=== PATIENT | female | born 1965 | race Caucasian/White ===

== ENCOUNTER 2019-10-16 12:20 | Inpatient (IN) | payer MEDICAID ==
[~2019-10-16] VITALS: Ht 163.8 cm; Wt 74.7 kg
--- NOTE | 2019-10-16 12:48 | NUR ---
LAB IN TO DRAW. XR AT BS.
[2019-10-16 13:12] LABS: MEAN CORPUSCULAR HEMOGLOBIN 27.9 pg (27.0-34.8); MEAN CORPUSCULAR HGB CONC 32.7 g/dL (32.4-35.8); MEAN CORPUSCULAR VOLUME 85.3 fL (80-100); MEAN PLATELET VOLUME 8.5 fL (7.4-10.4); PLATELET (DIC) 388 x10^3/uL (130-400); PLATELET COUNT 391 x10^3/uL (130-400); RED BLOOD COUNT 3.66 x10^6/uL (3.82-5.3); RED CELL DISTRIBUTION WIDTH 15.7 % (9.6-15.2)
[2019-10-16 13:16] LABS: ALANINE AMINOTRANSFERASE 20 U/L (12-78); ALBUMIN 2.7 g/dL (3.4-5.0); ANION GAP 8 mmol/L (5-15); CALCIUM 8.7 mg/dL (8.5-10.1); CHLORIDE 105 mmol/L (98-107)
[2019-10-16] MEDS ORDERED: CEFTRIAXONE PMX 1GM/50ML 50 ML ONE (13:22)
[2019-10-16] MEDS ORDERED: DOXYCYCLINE 100MG TABLET ONE ×2 (13:22→19:30)
[2019-10-16] MEDS ORDERED: methylPREDNISolone SOD SUCC 40 MG/ML ONE (13:22)
[2019-10-16 13:23] LABS: ALKALINE PHOSPHATASE 79 U/L (45-117); BILIRUBIN,TOTAL 0.5 mg/dL (0.2-1.0); CREATININE 0.83 mg/dL (0.55-1.02); TOTAL PROTEIN 7.1 g/dL (6.4-8.2)
[2019-10-16] MEDS ORDERED: ENOXAPARIN 60 MG/0.6 ML ONE (13:23)
[2019-10-16 13:27] LABS: C-REACTIVE PROTEIN, QUANT > 19.00 mg/dL (0.02-0.49)
[2019-10-16] MEDS ORDERED: Enoxaparin 1 mg/kg protocol SQ ONE (13:30)
[2019-10-16] MEDS ORDERED: CEFTRIAXONE PMX 1GM/50ML 50 ML IV ONE (13:30)
[2019-10-16] MEDS ORDERED: ENOXAPARIN 60 MG/0.6 ML SQ ONE (13:30)
[2019-10-16] MEDS ORDERED: methylPREDNISolone SOD SUCC 125 MG/2 ML IVPush ONE (13:30)
[2019-10-16] MEDS ORDERED: DOXYCYCLINE 100MG TABLET PO ONE (13:30)
[2019-10-16] MEDS: ENOXAPARIN 60 MG/0.6 ML SQ SCH ×2 (13:32→20:30)
[2019-10-16 13:34] LABS: D-DIMER (DIC) 1.61 ug/mlFEU (0.00-0.52); PROTIME 10.1 Seconds (9.6-11.5); PTT 31 Seconds (25-31)
[2019-10-16 13:40] LABS: BASOPHILS % (AUTO) 0 % (0-1); EOSINOPHILS # (AUTO) 0.19 x10^3/uL (0-0.4); EOSINOPHILS % (AUTO) 1 % (1-7); LYMPHOCYTES # (AUTO) 1.24 x10^3/uL (1-3.4); LYMPHOCYTES % (AUTO) 5 % (22-44); MD SCAN; MONOCYTES # (AUTO) 0.98 x10^3/uL (0.2-0.8); MONOCYTES % (AUTO) 4 % (2-9); NEUTROPHILS # (AUTO) 21.44 x10^3/uL (1.8-6.8); NEUTROPHILS % (AUTO) 90 % (42-75)
--- NOTE | 2019-10-16 13:44 | NUR ---
TASK RN: PT STATES "I CAN'T BREATHE. IT STARTED 3 DAYS AGO AND IT'S GETTING WORSE. I'M USING MY NEBULIZERS AND INHALERS AND NOTHING WORKING". HX ASTHMA. 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 PT R/O COVID ADMIT. PIV INITIATED. PT MEDICATED PER JUN. MONITORS IN PLACE. NADN. AWARE OF POC FOR ADMIT. [facility] AT BEDSIDE. PRIMARY RN RAFAEL NOTIFIED.
[2019-10-16] MEDS ORDERED: FLUO60TA PO (13:50)
[2019-10-16] MEDS ORDERED: FLUT100B INH (13:50)
[2019-10-16] MEDS ORDERED: TIZA2CAP PO (13:50)
[2019-10-16] MEDS ORDERED: LISI2.5T PO (13:50)
[2019-10-16] MEDS ORDERED: GABA600T7 PO (13:50)
[2019-10-16] MEDS ORDERED: FLUO20CA23 PO (13:50)
[2019-10-16] MEDS ORDERED: ALBU18HF INH (13:50)
[2019-10-16] MEDS ORDERED: BUSP30TA PO (13:50)
[2019-10-16] MEDS ORDERED: RISP1TAB45 PO (13:50)
[2019-10-16] MEDS ORDERED: ONDANSETRON 2MG/ML, 2ML IVPush PRN (14:00)
[2019-10-16] MEDS ORDERED: ENOXAPARIN 30 MG/0.3 ML SQ SCH (14:00)
[2019-10-16] MEDS ORDERED: ONDANSETRON ODT 4 MG PO PRN (14:00)
[2019-10-16 14:29] LABS: FIBRINOGEN > 860 mg/dL (200-340)
[2019-10-16] MEDS: CEFTRIAXONE PMX 1GM/50ML 50 ML IV SCH (14:44)
[2019-10-16] MEDS ORDERED: NICOTINE 14MG/24 HR PATCH.TD24 ONE (14:46)
[2019-10-16] MEDS: SODIUM CHLORIDE 0.9% 1,000 ML IV SCH (14:57)
[2019-10-16] MEDS: NICOTINE 14MG/24 HR PATCH.TD24 TD SCH (14:57)
[2019-10-16] MEDS ORDERED: BENZONATATE 100 MG CAPSULE ONE (15:18)
[2019-10-16] MEDS ORDERED: GABAPENTIN 300 MG CAPSULE ONE ×2 (15:18→19:30)
--- NOTE | 2019-10-16 15:25 | NUR ---
MEDS GIVEN PER EMAR. PT ASSISTED TO REPOSITION IN BED. CALL LIGHT WITHIN REACH.
--- NOTE | 2019-10-16 15:29 | NUR ---
CALL TO DR GREER [facility]. PT STATES SHE TAKES PERCOCET 10/325 MG PO TID FOR CHRONIC NECK AND BACK PAIN. DR GREER GIVES VERBAL ORDER CONFIRMING MEDICATION AT HOME DOSAGE, ORDER INPUT BY THIS RN.
[2019-10-16] MEDS ORDERED: OXYcodone/APAP 10/325MG TABLET ONE ×2 (15:31→22:35)
[2019-10-16] MEDS: OXYcodone/APAP 10/325MG TABLET PO PRN ×2 (15:37→22:36)
--- NOTE | 2019-10-16 15:37 | NUR ---
PT MEDICATED WITH PERCOCET FOR 10/10 CHRONIC/NECK AND BACK PAIN. LIGHTS DIMMED.
[2019-10-16] MEDS ORDERED: BENZONATATE 100 MG CAPSULE PO ONE (16:00)
[2019-10-16] MEDS ORDERED: TEMPLATE NON-FORMULARY MED. (Gabapentin** 600 MG) PO SCH (16:00)
--- NOTE | 2019-10-16 16:16 | NUR ---
REPORT TO GISELA ACMPBELL, TRANSFER OF CARE AT THIS TIME.
--- NOTE | 2019-10-16 17:30 | NUR ---
PT AMBULATED TO BR WITHOUT DIFFICULTY.
--- NOTE | 2019-10-16 19:00 | NUR ---
REPORTED TO STEPHANE CAMPBELL.
[2019-10-16] MEDS ORDERED: RISPERIDONE 2 MG TABLET ONE (19:30)
[2019-10-16] MEDS ORDERED: ALBUTEROL SULFATE 2.5MG/0.5ML ONE (19:59)
--- NOTE | 2019-10-16 20:14 | NUR ---
patient sleeping on stretcher resting comfortably, vss, nad. rn will continue to monitor
[2019-10-16] MEDS ORDERED: ALBUTEROL HFA 90 MCG/SPRAY INH PRN (20:30)
[2019-10-16] MEDS: GABAPENTIN 300 MG CAPSULE PO SCH (20:52)
[2019-10-16] MEDS: BUSPIRONE 10 MG TABLET PO SCH (20:52)
[2019-10-16] MEDS: TIZANIDINE 2MG TABLET PO PRN (20:52)
[2019-10-16] MEDS: DOXYCYCLINE 100MG CAP PO SCH (20:54)
[2019-10-16] MEDS: RISPERIDONE 1 MG TABLET PO SCH (20:54)
[2019-10-16] MEDS: BUDESONIDE 0.5 MG/2 ML INHA HHN SCH (21:00)
[2019-10-16] MEDS ORDERED: OXYcodone/APAP 5/325MG TABLET ONE (22:28)
--- NOTE | 2019-10-16 23:00 | NUR ---
PATIENT DESATED ON 4L NC CANNULA FOR RN TO MID 80 AND PATIENT WAS COUGHING. RN INCREASED PATIENT 02 TO 6L AND PATIENT WAS ONLY REACHING 87-88%. SPOKE TO MD AND SUGGESTED OPTIFLOW FOR SUPPORT, MD AGREED. RT CALLED. PATIENT SLOWLY INCREASED HER SATS TO 92% ON 6L ON HER OWN WHEN RESTING IN BED
--- NOTE | 2019-10-16 23:02 | NUR ---
PATIENT TRANSFERED TO HOSPITAL BEDD
--- NOTE | 2019-10-16 23:34 | NUR ---
spoke with RT patient is not sating 95% on 6L, len hold off on optiflow at this time. patients RR improved, rn will continue to monitor
--- NOTE | 2019-10-17 01:09 | NUR ---
BREAK RN: PT SLEEPING IN NO ACUTE DISTRESS EVEN AND UNLABORED RESPIRATIONS. VSS.
[2019-10-17] MEDS: ENOXAPARIN 60 MG/0.6 ML SQ SCH ×3 (01:30→21:18)
[2019-10-17 05:20] VITALS: BP 95/61
[2019-10-17 05:27] LABS: ANION GAP 5 mmol/L (5-15); CALCIUM 8.7 mg/dL (8.5-10.1); CHLORIDE 109 mmol/L (98-107)
[2019-10-17 05:50] LABS: MEAN CORPUSCULAR HGB CONC 32.3 g/dL (32.4-35.8); MEAN CORPUSCULAR VOLUME 86.8 fL (80-100); MEAN PLATELET VOLUME 9.3 fL (7.4-10.4); PLATELET COUNT 371 x10^3/uL (130-400); RED BLOOD COUNT 3.47 x10^6/uL (3.82-5.3)
[2019-10-17] MEDS: SODIUM CHLORIDE 0.9% 1,000 ML IV SCH (06:10)
[2019-10-17] MEDS: OXYcodone/APAP 10/325MG TABLET PO PRN ×2 (06:10→21:19)
[2019-10-17 06:13] LABS: BASOPHILS % (AUTO) 0 % (0-1); EOSINOPHILS # (AUTO) 0.02 x10^3/uL (0-0.4); EOSINOPHILS % (AUTO) 0 % (1-7); LYMPHOCYTES # (AUTO) 0.73 x10^3/uL (1-3.4); LYMPHOCYTES % (AUTO) 3 % (22-44); MD SCAN; MONOCYTES # (AUTO) 0.94 x10^3/uL (0.2-0.8); MONOCYTES % (AUTO) 4 % (2-9); NEUTROPHILS # (AUTO) 21.05 x10^3/uL (1.8-6.8); NEUTROPHILS % (AUTO) 93 % (42-75)
[2019-10-17] MEDS ORDERED: LISINOPRIL 10 MG TABLET ONE (08:56)
[2019-10-17] MEDS ORDERED: FLUOXETINE HCL 20 MG CAPSULE ONE (08:57)
[2019-10-17] MEDS ORDERED: FLUOXETINE HCL 20 MG CAPSULE PO SCH (09:00)
[2019-10-17] MEDS: BUDESONIDE 0.5 MG/2 ML INHA HHN SCH ×2 (09:00→21:00)
[2019-10-17] MEDS ORDERED: methylPREDNISolone SOD SUCC 40 MG/ML IV SCH (09:00)
[2019-10-17] MEDS: FLUOXETINE 10 MG CAP PO SCH (09:14)
[2019-10-17] MEDS: BUSPIRONE 10 MG TABLET PO SCH ×2 (09:14→21:19)
[2019-10-17] MEDS: GABAPENTIN 300 MG CAPSULE PO SCH ×3 (09:15→21:20)
[2019-10-17] MEDS: RISPERIDONE 1 MG TABLET PO SCH ×2 (09:15→21:20)
[2019-10-17] MEDS: LISINOPRIL 20 MG TABLET PO SCH (09:15)
[2019-10-17] MEDS: DOXYCYCLINE 100MG CAP PO SCH ×2 (09:15→21:19)
[2019-10-17] MEDS: CHOLECALCIFEROL 1,000 UNIT TABLET PO SCH (13:12)
[2019-10-17] MEDS: ASCORBIC ACID 500 MG TABLET PO SCH ×3 (13:12→21:20)
[2019-10-17] MEDS: CEFTRIAXONE PMX 1GM/50ML 50 ML IV SCH (13:13)
[2019-10-17] MEDS: NICOTINE 14MG/24 HR PATCH.TD24 TD SCH (13:13)
[2019-10-17 14:00] VITALS: BP 121/75
[2019-10-17] MEDS: methylPREDNISolone SOD SUCC 125 MG/2 ML IV SCH ×2 (14:37→21:21)
[2019-10-17] MEDS: ACETAMINOPHEN 325 MG TABLET PO PRN (14:37)
[2019-10-17] MEDS ORDERED: FUROSEMIDE 40 MG/4 ML IV ONE (15:30)
[2019-10-17] MEDS ORDERED: REMDESIVIR 200 MG in SODIUM CHLORIDE 0.9% 250 ML IVPB ONE (15:30)
[2019-10-17 20:42] VITALS: BP 108/70
[2019-10-17] MEDS: MELATONIN 5 MG TABLET PO SCH (21:20)
[2019-10-17] MEDS: CALCIUM CARBONATE 500 MG TAB.CHEW PO PRN (21:20)
[2019-10-17] MEDS ORDERED: [UNRECOGNIZED DRUG - REMARK] MC SCH (23:00)
[2019-10-18 01:36] VITALS: BP 113/76
[2019-10-18] MEDS: methylPREDNISolone SOD SUCC 125 MG/2 ML IV SCH ×4 (03:31→21:13)
[2019-10-18 05:18] LABS: MEAN CORPUSCULAR HEMOGLOBIN 27.7 pg (27.0-34.8); MEAN CORPUSCULAR HGB CONC 31.8 g/dL (32.4-35.8); MEAN CORPUSCULAR VOLUME 86.9 fL (80-100); MEAN PLATELET VOLUME 9.2 fL (7.4-10.4); PLATELET COUNT 402 x10^3/uL (130-400); RED BLOOD COUNT 3.41 x10^6/uL (3.82-5.3); RED CELL DISTRIBUTION WIDTH 15.6 % (9.6-15.2)
[2019-10-18 05:31] LABS: ALBUMIN 2.1 g/dL (3.4-5.0); ANION GAP 6 mmol/L (5-15); CALCIUM 9.1 mg/dL (8.5-10.1); CHLORIDE 109 mmol/L (98-107)
[2019-10-18 05:39] LABS: MD YES
[2019-10-18 05:40] LABS: ALANINE AMINOTRANSFERASE 15 U/L (12-78); ALKALINE PHOSPHATASE 80 U/L (45-117); BAND#(MANUAL) 1.57 x10^3/uL; BANDS%(MANUAL) 7 % (0-7); BILIRUBIN,TOTAL 0.2 mg/dL (0.2-1.0); CREATININE 0.66 mg/dL (0.55-1.02); LYMPH#(MANUAL) 0.45 x10^3/uL (1-3.4); LYMPHS% (MANUAL) 2 % (22-44); MONOS#(MANUAL) 0.45 x10^3/uL (0.3-2.7); MONOS% (MANUAL) 2 % (2-9); SEG#(MANUAL) 19.94 x10^3/uL (1.8-6.8); SEGS% (MANUAL) 89 % (42-75); TOTAL PROTEIN 6.6 g/dL (6.4-8.2)
[2019-10-18 05:41] LABS: <PLATELET ESTIMATE> ADEQUATE; <PLT MORPHOLOGY> NORMAL PLT MORPH; ANISOCYTOSIS 1+
[2019-10-18] MEDS: OXYcodone/APAP 10/325MG TABLET PO PRN ×3 (05:49→21:13)
[2019-10-18 05:53] LABS: C-REACTIVE PROTEIN, QUANT > 19.00 mg/dL (0.02-0.49)
[2019-10-18 07:29] VITALS: BP 110/72
[2019-10-18] MEDS ORDERED: LISINOPRIL 10 MG TABLET ONE (08:36)
[2019-10-18] MEDS: ENOXAPARIN 60 MG/0.6 ML SQ SCH ×2 (08:48→21:12)
[2019-10-18] MEDS: BUSPIRONE 10 MG TABLET PO SCH ×2 (08:48→21:12)
[2019-10-18] MEDS: FLUOXETINE 10 MG CAP PO SCH (08:49)
[2019-10-18] MEDS: ZINC SULFATE 220 MG CAPSULE PO SCH (08:49)
[2019-10-18] MEDS: RISPERIDONE 1 MG TABLET PO SCH ×2 (08:49→21:13)
[2019-10-18] MEDS: DOXYCYCLINE 100MG CAP PO SCH ×2 (08:49→21:00)
[2019-10-18] MEDS: ASCORBIC ACID 500 MG TABLET PO SCH ×3 (08:49→21:12)
[2019-10-18] MEDS: GABAPENTIN 300 MG CAPSULE PO SCH ×3 (08:49→21:12)
[2019-10-18] MEDS: CHOLECALCIFEROL 1,000 UNIT TABLET PO SCH (08:50)
[2019-10-18] MEDS: FLUTICASONE FUROATE 100MCG/INH INH SCH (08:51)
[2019-10-18] MEDS: LISINOPRIL 20 MG TABLET PO SCH (08:52)
[2019-10-18] MEDS ORDERED: FUROSEMIDE 20 MG/2 ML IV SCH (10:00)
[2019-10-18] MEDS: CEFTRIAXONE PMX 1GM/50ML 50 ML IV SCH (13:11)
[2019-10-18] MEDS: NICOTINE 14MG/24 HR PATCH.TD24 TD SCH (13:16)
[2019-10-18] MEDS: REMDESIVIR 100 MG in SODIUM CHLORIDE 0.9% 250 ML IVPB SCH (16:09)
[2019-10-18] MEDS: CALCIUM CARBONATE 500 MG TAB.CHEW PO PRN (16:25)
[2019-10-18] MEDS ORDERED: DOXYCYCLINE 100MG TABLET ONE (20:01)
[2019-10-18] MEDS: MELATONIN 5 MG TABLET PO SCH (21:12)
[2019-10-19] MEDS: methylPREDNISolone SOD SUCC 125 MG/2 ML IV SCH ×3 (02:36→20:04)
[2019-10-19] MEDS: ACETAMINOPHEN 325 MG TABLET PO PRN (02:52)
[2019-10-19 06:16] LABS: MEAN CORPUSCULAR HEMOGLOBIN 27.3 pg (27.0-34.8); MEAN CORPUSCULAR HGB CONC 31.6 g/dL (32.4-35.8); MEAN CORPUSCULAR VOLUME 86.5 fL (80-100); MEAN PLATELET VOLUME 9.4 fL (7.4-10.4); PLATELET COUNT 500 x10^3/uL (130-400); RED BLOOD COUNT 3.57 x10^6/uL (3.82-5.3); RED CELL DISTRIBUTION WIDTH 15.5 % (9.6-15.2)
[2019-10-19 06:29] LABS: ALBUMIN 2.3 g/dL (3.4-5.0); ANION GAP 4 mmol/L (5-15); CALCIUM 9.4 mg/dL (8.5-10.1); CHLORIDE 106 mmol/L (98-107)
[2019-10-19 06:31] LABS: MD YES
[2019-10-19 06:32] LABS: BAND#(MANUAL) 1.09 x10^3/uL; BANDS%(MANUAL) 4 % (0-7); LYMPH#(MANUAL) 1.09 x10^3/uL (1-3.4); LYMPHS% (MANUAL) 4 % (22-44); MONOS#(MANUAL) 0.82 x10^3/uL (0.3-2.7); MONOS% (MANUAL) 3 % (2-9); SEGS% (MANUAL) 89 % (42-75)
[2019-10-19 06:33] LABS: <PLATELET ESTIMATE> INCREASED; <PLT MORPHOLOGY> NORMAL PLT MORPH; ANISOCYTOSIS 1+; HYPOCHROMIA 1+
[2019-10-19 06:35] LABS: ALANINE AMINOTRANSFERASE 13 U/L (12-78); ALKALINE PHOSPHATASE 79 U/L (45-117); BILIRUBIN,TOTAL 0.1 mg/dL (0.2-1.0); CREATININE 0.71 mg/dL (0.55-1.02); TOTAL PROTEIN 6.6 g/dL (6.4-8.2)
[2019-10-19] MEDS: ENOXAPARIN 60 MG/0.6 ML SQ SCH ×2 (07:54→20:04)
[2019-10-19] MEDS: FUROSEMIDE 20 MG/2 ML IV SCH ×2 (08:08→20:04)
[2019-10-19] MEDS: OXYcodone/APAP 10/325MG TABLET PO PRN ×3 (08:08→23:47)
[2019-10-19] MEDS: FLUTICASONE FUROATE 100MCG/INH INH SCH (08:09)
[2019-10-19] MEDS: DOXYCYCLINE 100MG CAP PO SCH ×2 (09:00→20:07)
[2019-10-19] MEDS: LISINOPRIL 20 MG TABLET PO SCH (09:00)
[2019-10-19] MEDS ORDERED: LISINOPRIL 10 MG TABLET ONE (09:20)
[2019-10-19] MEDS: ASCORBIC ACID 500 MG TABLET PO SCH ×3 (09:36→20:05)
[2019-10-19] MEDS: GABAPENTIN 300 MG CAPSULE PO SCH ×3 (09:36→20:05)
[2019-10-19] MEDS: ZINC SULFATE 220 MG CAPSULE PO SCH (09:37)
[2019-10-19] MEDS: CHOLECALCIFEROL 1,000 UNIT TABLET PO SCH (09:37)
[2019-10-19] MEDS: BUSPIRONE 10 MG TABLET PO SCH ×2 (09:39→20:05)
[2019-10-19] MEDS: FLUOXETINE 10 MG CAP PO SCH (09:39)
[2019-10-19] MEDS: RISPERIDONE 1 MG TABLET PO SCH ×2 (09:39→20:04)
[2019-10-19] MEDS: NICOTINE 14MG/24 HR PATCH.TD24 TD SCH (13:54)
[2019-10-19] MEDS: CEFTRIAXONE PMX 1GM/50ML 50 ML IV SCH (13:55)
[2019-10-19] MEDS: REMDESIVIR 100 MG in SODIUM CHLORIDE 0.9% 250 ML IVPB SCH (16:14)
[2019-10-19] MEDS: MELATONIN 5 MG TABLET PO SCH (20:04)
[2019-10-20 04:26] VITALS: BP 111/63
[2019-10-20] MEDS: ACETAMINOPHEN 325 MG TABLET PO PRN (04:40)
[2019-10-20 05:54] LABS: ALANINE AMINOTRANSFERASE 14 U/L (12-78); ALBUMIN 2.2 g/dL (3.4-5.0); ANION GAP 4 mmol/L (5-15); CALCIUM 9.2 mg/dL (8.5-10.1); CHLORIDE 102 mmol/L (98-107); CREATININE 0.71 mg/dL (0.55-1.02)
[2019-10-20 05:56] LABS: ALKALINE PHOSPHATASE 73 U/L (45-117); BILIRUBIN,TOTAL 0.1 mg/dL (0.2-1.0)
[2019-10-20 05:58] LABS: MEAN CORPUSCULAR HEMOGLOBIN 27.5 pg (27.0-34.8); MEAN CORPUSCULAR HGB CONC 32.2 g/dL (32.4-35.8); MEAN CORPUSCULAR VOLUME 85.4 fL (80-100); MEAN PLATELET VOLUME 9.5 fL (7.4-10.4); PLATELET COUNT 500 x10^3/uL (130-400); RED BLOOD COUNT 3.54 x10^6/uL (3.82-5.3); RED CELL DISTRIBUTION WIDTH 15.7 % (9.6-15.2)
[2019-10-20 06:41] LABS: MD YES
[2019-10-20 06:44] LABS: ANISOCYTOSIS 1+; BAND#(MANUAL) 0.37 x10^3/uL; BANDS%(MANUAL) 2 % (0-7); EOS#(MANUAL) 0.18 x10^3/uL (0.0-0.4); EOS% (MANUAL) 1 % (1-7); LYMPH#(MANUAL) 0.92 x10^3/uL (1-3.4); LYMPHS% (MANUAL) 5 % (22-44); MONOS#(MANUAL) 0.92 x10^3/uL (0.3-2.7); MONOS% (MANUAL) 5 % (2-9); POLYCHROMASIA 1+; SEG#(MANUAL) 16.01 x10^3/uL (1.8-6.8); SEGS% (MANUAL) 87 % (42-75)
[2019-10-20 06:45] LABS: <PLATELET ESTIMATE> INCREASED; <PLT MORPHOLOGY> NORMAL PLT MORPH
[2019-10-20] MEDS ORDERED: LISINOPRIL 10 MG TABLET ONE (07:25)
[2019-10-20] MEDS: OXYcodone/APAP 10/325MG TABLET PO PRN ×2 (07:50→15:43)
[2019-10-20] MEDS: FUROSEMIDE 20 MG/2 ML IV SCH ×2 (07:57→20:12)
[2019-10-20] MEDS: methylPREDNISolone SOD SUCC 125 MG/2 ML IV SCH ×2 (07:57→20:13)
[2019-10-20] MEDS: FLUTICASONE FUROATE 100MCG/INH INH SCH (07:58)
[2019-10-20] MEDS: ENOXAPARIN 60 MG/0.6 ML SQ SCH ×2 (07:58→20:14)
[2019-10-20] MEDS: ZINC SULFATE 220 MG CAPSULE PO SCH (07:59)
[2019-10-20] MEDS: GABAPENTIN 300 MG CAPSULE PO SCH ×3 (07:59→20:13)
[2019-10-20] MEDS: DOXYCYCLINE 100MG CAP PO SCH ×2 (07:59→20:14)
[2019-10-20] MEDS: ASCORBIC ACID 500 MG TABLET PO SCH ×3 (07:59→20:14)
[2019-10-20] MEDS: RISPERIDONE 1 MG TABLET PO SCH ×2 (07:59→20:14)
[2019-10-20] MEDS: CHOLECALCIFEROL 1,000 UNIT TABLET PO SCH (07:59)
[2019-10-20] MEDS: FLUOXETINE 10 MG CAP PO SCH (07:59)
[2019-10-20] MEDS: LISINOPRIL 20 MG TABLET PO SCH (07:59)
[2019-10-20] MEDS: BUSPIRONE 10 MG TABLET PO SCH ×2 (07:59→20:14)
[2019-10-20] MEDS: NICOTINE 14MG/24 HR PATCH.TD24 TD SCH (14:10)
[2019-10-20] MEDS: CEFTRIAXONE PMX 1GM/50ML 50 ML IV SCH (14:10)
[2019-10-20] MEDS: REMDESIVIR 100 MG in SODIUM CHLORIDE 0.9% 250 ML IVPB SCH (15:42)
[2019-10-20 20:09] VITALS: BP 143/87
[2019-10-20] MEDS: MELATONIN 5 MG TABLET PO SCH (20:14)
[2019-10-20] MEDS ORDERED: TIZANIDINE 4MG TABLET ONE (20:25)
[2019-10-20] MEDS: TIZANIDINE 2MG TABLET PO PRN (20:30)
[2019-10-21] MEDS ORDERED: OXYcodone/APAP 10/325MG TABLET ONE (00:03)
[2019-10-21] MEDS: OXYcodone/APAP 10/325MG TABLET PO PRN ×3 (00:05→16:34)
[2019-10-21 00:06] VITALS: BP 128/80
[2019-10-21 06:16] LABS: ALBUMIN 2.2 g/dL (3.4-5.0); ANION GAP 8 mmol/L (5-15); CHLORIDE 101 mmol/L (98-107)
[2019-10-21 06:20] LABS: ALANINE AMINOTRANSFERASE 16 U/L (12-78); ALKALINE PHOSPHATASE 71 U/L (45-117); BILIRUBIN,TOTAL 0.1 mg/dL (0.2-1.0); CREATININE 0.71 mg/dL (0.55-1.02); TOTAL PROTEIN 6.5 g/dL (6.4-8.2)
[2019-10-21 07:06] LABS: MEAN CORPUSCULAR HEMOGLOBIN 27.1 pg (27.0-34.8); MEAN CORPUSCULAR HGB CONC 31.5 g/dL (32.4-35.8); MEAN CORPUSCULAR VOLUME 86.1 fL (80-100); MEAN PLATELET VOLUME 10.2 fL (7.4-10.4); PLATELET COUNT 414 x10^3/uL (130-400); RED BLOOD COUNT 3.97 x10^6/uL (3.82-5.3); RED CELL DISTRIBUTION WIDTH 15.9 % (9.6-15.2)
[2019-10-21 07:39] LABS: BASOPHILS # (AUTO) 0.03 x10^3/uL (0-0.1); BASOPHILS % (AUTO) 0 % (0-1); EOSINOPHILS # (AUTO) 0.19 x10^3/uL (0-0.4); EOSINOPHILS % (AUTO) 1 % (1-7); LYMPHOCYTES # (AUTO) 2.11 x10^3/uL (1-3.4); LYMPHOCYTES % (AUTO) 9 % (22-44); MD MORPH REVIEW ONLY; MONOCYTES # (AUTO) 0.17 x10^3/uL (0.2-0.8); MONOCYTES % (AUTO) 1 % (2-9); NEUTROPHILS % (AUTO) 89 % (42-75)
[2019-10-21 07:40] LABS: <PLATELET ESTIMATE> INCREASED; <PLT MORPHOLOGY> NORMAL PLT MORPH; ANISOCYTOSIS 1+; PMNS WITH VACUOLES 1+; POLYCHROMASIA 1+
[2019-10-21] MEDS ORDERED: LISINOPRIL 10 MG TABLET ONE (08:17)
[2019-10-21] MEDS: methylPREDNISolone SOD SUCC 125 MG/2 ML IV SCH (08:30)
[2019-10-21] MEDS: FUROSEMIDE 20 MG/2 ML IV SCH ×2 (08:30→20:29)
[2019-10-21] MEDS: ENOXAPARIN 60 MG/0.6 ML SQ SCH ×2 (08:31→20:29)
[2019-10-21] MEDS: FLUOXETINE 10 MG CAP PO SCH (08:31)
[2019-10-21] MEDS: ZINC SULFATE 220 MG CAPSULE PO SCH (08:31)
[2019-10-21] MEDS: BUSPIRONE 10 MG TABLET PO SCH ×2 (08:32→20:29)
[2019-10-21] MEDS: ASCORBIC ACID 500 MG TABLET PO SCH ×3 (08:32→20:31)
[2019-10-21] MEDS: RISPERIDONE 1 MG TABLET PO SCH ×2 (08:32→20:30)
[2019-10-21] MEDS: GABAPENTIN 300 MG CAPSULE PO SCH ×3 (08:32→20:29)
[2019-10-21] MEDS: DOXYCYCLINE 100MG CAP PO SCH ×2 (08:33→20:30)
[2019-10-21] MEDS: LISINOPRIL 20 MG TABLET PO SCH (08:33)
[2019-10-21] MEDS: CHOLECALCIFEROL 1,000 UNIT TABLET PO SCH (08:33)
[2019-10-21] MEDS: FLUTICASONE FUROATE 100MCG/INH INH SCH (09:00)
[2019-10-21 09:12] VITALS: BP 114/70
[2019-10-21 13:52] VITALS: BP 101/63
[2019-10-21] MEDS: CEFTRIAXONE PMX 1GM/50ML 50 ML IV SCH (14:31)
[2019-10-21] MEDS: NICOTINE 14MG/24 HR PATCH.TD24 TD SCH (14:31)
[2019-10-21] MEDS: REMDESIVIR 100 MG in SODIUM CHLORIDE 0.9% 250 ML IVPB SCH (16:34)
[2019-10-21 19:33] VITALS: BP 113/70
[2019-10-21] MEDS: MELATONIN 5 MG TABLET PO SCH (20:30)
[2019-10-21] MEDS ORDERED: TIZANIDINE 4MG TABLET ONE (20:54)
[2019-10-21] MEDS: TIZANIDINE 2MG TABLET PO PRN (20:59)
[2019-10-22 02:38] VITALS: BP 107/71
[2019-10-22] MEDS: OXYcodone/APAP 10/325MG TABLET PO PRN ×2 (02:50→10:55)
[2019-10-22 07:09] VITALS: BP 100/64
[2019-10-22] MEDS: CHOLECALCIFEROL 1,000 UNIT TABLET PO SCH (08:38)
[2019-10-22] MEDS: GABAPENTIN 300 MG CAPSULE PO SCH ×2 (08:38→17:00)
[2019-10-22] MEDS: FLUOXETINE 10 MG CAP PO SCH (08:38)
[2019-10-22] MEDS: ZINC SULFATE 220 MG CAPSULE PO SCH (08:40)
[2019-10-22] MEDS: DOXYCYCLINE 100MG CAP PO SCH (08:40)
[2019-10-22] MEDS: ASCORBIC ACID 500 MG TABLET PO SCH ×2 (08:40→17:00)
[2019-10-22] MEDS: BUSPIRONE 10 MG TABLET PO SCH (08:40)
[2019-10-22] MEDS: FUROSEMIDE 20 MG/2 ML IV SCH (08:40)
[2019-10-22] MEDS: LISINOPRIL 20 MG TABLET PO SCH (08:41)
[2019-10-22] MEDS: ENOXAPARIN 60 MG/0.6 ML SQ SCH (08:41)
[2019-10-22] MEDS: FLUTICASONE FUROATE 100MCG/INH INH SCH (08:41)
[2019-10-22] MEDS: RISPERIDONE 1 MG TABLET PO SCH (08:42)
[2019-10-22] MEDS ORDERED: methylPREDNISolone SOD SUCC 40 MG/ML IV SCH (09:00)
[2019-10-22] MEDS ORDERED: TIZANIDINE 4MG TABLET ONE (10:57)
[2019-10-22] MEDS: TIZANIDINE 2MG TABLET PO PRN (10:59)
[2019-10-22 12:15] VITALS: BP 98/62
[2019-10-22] MEDS: NICOTINE 14MG/24 HR PATCH.TD24 TD SCH (15:25)
[2019-10-22] MEDS: CEFTRIAXONE PMX 1GM/50ML 50 ML IV SCH (15:26)
[2019-10-22] MEDS ORDERED: CHOL10003 PO (17:20)
[2019-10-22] MEDS ORDERED: CEFD300C37 PO (17:20)
[2019-10-22] MEDS ORDERED: ASCO10004 PO (17:20)
[2019-10-22] MEDS ORDERED: ZINC220C7 PO (17:20)
[2019-10-22] MEDS ORDERED: RISPERIDONE 2 MG TABLET PO SCH (21:00)
== END 2019-10-22 18:32 | disposition home or self-care (01) | DRG 193 ==
LOC: ED 13:36 → EDIP 13:49 → 4NE 10-17 05:18 → ICU 10-18 14:03 → 4NE 10-20 12:24
PROVIDERS: ADMIT Hospitalist; ATTEND Hospitalist
PROC: 5A09357 Assistance with Respiratory Ventilation, Less than 24 Consecutive Hours, Continuous Positive Airway Pressure (ICD-10-PCS; principal; 2019-10-16)
DX: J18.9 Pneumonia, unspecified organism (principal); J96.01 Acute respiratory failure with hypoxia; J44.0 Chronic obstructive pulmonary disease with (acute) lower respiratory infection; E87.1 Hypo-osmolality and hyponatremia; I10 Essential (primary) hypertension; G89.4 Chronic pain syndrome; F43.12 Post-traumatic stress disorder, chronic; F39 Unspecified mood [affective] disorder; F17.210 Nicotine dependence, cigarettes, uncomplicated; D72.829 Elevated white blood cell count, unspecified; F32.9 Major depressive disorder, single episode, unspecified; F41.9 Anxiety disorder, unspecified; R79.89 Other specified abnormal findings of blood chemistry; M48.02 Spinal stenosis, cervical region; G47.30 Sleep apnea, unspecified; Z20.828 Contact with and (suspected) exposure to other viral communicable diseases; D64.9 Anemia, unspecified; Z80.6 Family history of leukemia; Z80.8 Family history of malignant neoplasm of other organs or systems; Z88.1 Allergy status to other antibiotic agents
CPT/HCPCS: 36415; 36600; 71045; 80048; 80053; 82728; 82803; 83605; 83615; 83880; 84145; 85025; 85049; 85379; 85384; 85610; 85730; 86140; 87040; 87081; 87635; 93005; 96374; 96375; G0378; J0696; J1650; J1940; J2920; J2930; J7030; J7050